=== PATIENT | female | born 1950 | race Caucasian/White ===

== ENCOUNTER 2018-02-08 10:01 | Emergency (ER) | payer MEDICARE, OTHER ==
[2018-02-08] MEDS ORDERED: DIAZEPAM INJ 10 MG/2 ML DISP.SYRIN IV ONE (10:31)
--- NOTE | 2018-02-08 10:31 | ER Document Report ---
ED General - General Chief Complaint: Back Pain Stated Complaint: LEFT SIDE PAIN Time Seen by Provider: 02/08/18 10:12 Mode of Arrival: Wheelchair Information source: Patient, Relative Notes: 68-year-old female history of brain surgery aneurysm, seizures with chronic tremors left-sided weakness presents with complaints of left-sided pain that worsened since a bus trip on Friday. Patient denies a history of DVTs or PEs, denies any calf pain, admits to back pain chest pain headache worsening shaking face spasms. TRAVEL OUTSIDE OF THE [place] IN LAST 30 DAYS: No - HPI Onset: Yesterday Onset/Duration: Persistent Quality of pain: Cramping Severity: Mild Pain Level: 1 Associated symptoms: Body/muscle aches, Chest pain, Headache Exacerbated by: Movement Relieved by: Denies Similar symptoms previously: Yes Recently seen / treated by doctor: Yes - Related Data Allergies/Adverse Reactions: iodine [Iodine] Allergy (Severe, Verified 04/28/14 21:13) Anaphylaxis naproxen [Naproxen] Allergy (Verified 04/28/14 21:13) phenytoin sodium [From Dilantin] Allergy (Verified 04/28/14 21:13) phenytoin sodium extended [From Dilantin] Allergy (Verified 04/28/14 21:13) shrimp Allergy (Uncoded 04/28/14 21:13) Past Medical History - Social History Smoking Status: Never Smoker Cigarette use (# per day): No Chew tobacco use (# tins/day): No Smoking Education Provided: No Frequency of alcohol use: None Drug Abuse: None Family History: Reviewed & Not Pertinent Patient has suicidal ideation: No Patient has homicidal ideation: No - Past Medical History Cardiac Medical History: Denies: Hx Heart Attack, Hx Hypertension Pulmonary Medical History: Reports: Hx Asthma - childhood Denies: Hx Bronchitis, Hx COPD, Hx Pneumonia, Hx Tuberculosis Neurological Medical History: Reports: Hx Cerebrovascular Accident - DURING BRAIN SURGERY, Hx Seizures Renal/ Medical History: Denies: Hx Peritoneal Dialysis GI Medical History: Reports: Hx Gastroesophageal Reflux Disease, Hx Irritable Bowel Musculoskeltal Medical History: Denies Hx Arthritis Psychiatric Medical History: Reports: Hx Dementia, Hx Depression - Anxiety Past Surgical History: Reports: Hx Abdominal Surgery - gastric bypass, Hx Gastric Bypass Surgery, Hx Neurologic Surgery - brain aneurysm 2000, Hx Tonsillectomy, Hx Tubal Ligation. Denies: Hx Hysterectomy, Hx Pacemaker - Immunizations Hx Diphtheria, Pertussis, Tetanus Vaccination: Yes - <5 years Hx Pneumococcal Vaccination: 04/27/14 Review of Systems - Review of Systems Notes: REVIEW OF SYSTEMS: CONSTITUTIONAL : Denies fever, chills, or sweats. Denies recent illness. EENT: Admits to facial spasms CARDIOVASCULAR: Admits to chest pain RESPIRATORY: Denies cough, cold, or chest congestion. Denies shortness of breath, difficulty breathing, or wheezing. GASTROINTESTINAL: Denies abdominal pain or distention. Denies nausea, vomiting , or diarrhea. Denies blood in vomitus, stools, or per rectum. Denies black, tarry stools. Denies constipation. GENITOURINARY: Denies difficulty urinating, painful urination, burning, frequency, blood in urine, or discharge. FEMALE GENITOURINARY: Denies vaginal bleeding, heavy or abnormal periods, irregular periods. Denies vaginal discharge or odor. MUSCULOSKELETAL: Admits to back pain SKIN: Denies rash, lesions or sores. HEMATOLOGIC : Denies easy bruising or bleeding. LYMPHATIC: Denies swollen, enlarged glands. NEUROLOGICAL: Admits to tremors and feeling like she is getting C's PSYCHIATRIC: Denies anxiety or stress. Denies depression, suicidal ideation, or homicidal ideation. ALL OTHER SYSTEMS REVIEWED AND NEGATIVE. PHYSICAL EXAMINATION: GENERAL: Well-appearing, well-nourished and in no acute distress. Patient appears extremely anxious HEAD: Atraumatic, normocephalic. EYES: Pupils equal round and reactive to light, extraocular movements intact, conjunctiva are normal. ENT: Nares patent, oropharynx clear without exudates. Moist mucous membranes. NECK: Normal range of motion, supple without lymphadenopathy LUNGS: Breath sounds clear to auscultation bilaterally and equal. No wheezes rales or rhonchi. HEART: Regular rate and rhythm without murmurs ABDOMEN: Soft, nontender, nondistended abdomen. No guarding, no rebound. No masses appreciated. Female : deferred Musculoskeletal: Tremors noted in bilateral upper extremities NEUROLOGICAL: Tremors noted mild weakness left-sided however. Sensation is noted upon pinprick PSYCH: Patient is extremely anxious SKIN: Warm, Dry, normal turgor, no rashes or lesions noted. Dictation was performed using [employer] recognition software Physical Exam - Vital signs Vitals: Temp Pulse Resp BP Pulse Ox 97.9 F 65 16 139/47 H 98 02/08/18 10:10 02/08/18 10:10 02/08/18 10:10 02/08/18 10:10 02/08/18 10:10 Course - Re-evaluation Re-evalutation: 02/08/18 10:40 I have very low suspicion for any life-threatening issues.. The patient is having muscle spasms from his trip, she has no calf pain calf swelling, no concerns for DVT, patient has no cardiac history, nonetheless I will workup for cardiac concerns through CT of her head, I have very low suspicion for an intracranial bleed either, patient appears very anxious yet states her anxiety is under control 02/08/18 11:49 After receiving Valium, patient is calm her agitation is improved she is denying any pain 02/08/18 17:40 Patient feels much better wishes to be discharged home will be discharged with close follow-up both she and are very happy with this plan After performing a Medical Screening Examination, I estimate there is LOW risk for ACUTE GLAUCOMA, TEMPORAL ARTERITIS, MENINGITIS, INCRANIAL HEMORRHAGE, or ISCHEMIC STROKE thus I consider the discharge disposition reasonable. I have reevaluated this patient multiple times and no significant life threatening changes are noted. The patient and I have discussed the diagnosis and risks, and we agree with discharging home with close follow-up with the understanding that symptoms and presentations can change. We also discussed returning to the Emergency Department immediately if new or worsening symptoms occur. We have discussed the symptoms which are most concerning (e.g., changing or worsening symptoms, new numbness or weakness, vomiting, fever) that necessitate immediate return. - Vital Signs Vital signs: Temp Pulse Resp BP Pulse Ox 98.1 F 65 14 104/59 L 98 02/08/18 14:58 02/08/18 10:10 02/08/18 14:58 02/08/18 14:58 02/08/18 14:58 - Laboratory Result Diagrams: 02/08/18 10:55 02/08/18 12:19 Laboratory results interpreted by me: 02/08/18 02/08/18 10:55 12:19 Hgb 11.9 L RDW 14.3 H Creatinine 0.49 L Total Protein 6.2 L - Diagnostic Test Radiology reviewed: Image reviewed - No acute abnormality, Reports reviewed Discharge - Discharge Clinical Impression: Muscle spasm, Body aches, Anxiety Condition: Stable Disposition: HOME, SELF-CARE Instructions: Myalagia (Muscle Pain) ([facility]) Prescriptions: Diazepam [Valium 5 mg Tablet] 5 mg PO QIDP PRN #15 tablet PRN Reason: Referrals: NICK ALVARENGA JR, MD [Primary Care Provider] - Follow up as needed
[2018-02-08 11:07] LABS: ABSOLUTE BASOPHILS # (AUTO) 0.1 10^3/uL (0.0-0.2); ABSOLUTE EOSINOPHILS # (AUTO) 0.3 10^3/uL (0.0-0.6); ABSOLUTE LYMPHOCYTES (AUTO) 1.7 10^3/uL (0.5-4.7); ABSOLUTE MONOCYTES (AUTO) 0.5 10^3/uL (0.1-1.4); ABSOLUTE NEUT (AUTO) 3.6 10^3/uL (1.7-8.2); BASOPHILS % (AUTO) 0.8 % (0-2); EOSINOPHILS % (AUTO) 4.1 % (0-6); HEMATOCRIT 36.4 % (36.0-47.0); HEMOGLOBIN 11.9 g/dL (12.0-15.5); LYMPHOCYTES % (AUTO) 28.2 % (13-45); MEAN CORPUSCULAR HEMOGLOBIN 29.8 pg (27.0-33.4); MEAN CORPUSCULAR HGB CONC 32.8 g/dL (32.0-36.0); MEAN CORPUSCULAR VOLUME 91 fl (80-97); MONOCYTES % (AUTO) 8.2 % (3-13); PLATELET COUNT 247 10^3/uL (150-450); RED BLOOD COUNT 4.01 10^6/uL (3.72-5.28); RED CELL DISTRIBUTION WIDTH 14.3 % (11.5-14.0); SEGMENTED NEUTROPHILS % (AUTO) 58.7 % (42-78); TOTAL CELLS COUNTED % (AUTO) 100 %; WHITE BLOOD COUNT 6.1 10^3/uL (4.0-10.5)
--- NOTE | 2018-02-08 12:00 | RADIOLOGY REPORT (SQ) ---
EXAM DESCRIPTION: CT HEAD WITHOUT COMPLETED DATE/TIME: 02/08/2018 11:39 am REASON FOR STUDY: headache, hx aneurysm COMPARISON: 2012 TECHNIQUE: Axial images acquired through the brain without intravenous contrast. Images reviewed wi th bone, brain and subdural windows. Additional sagittal and coronal reconstructions were generated. Images stored on PACS. All CT scanners at this facility use dose modulation, iterative reconstruction, and/or weight based d osing when appropriate to reduce radiation dose to as low as reasonably achievable (ALARA). [facility]: Dose Right [facility]: CareDose [facility]: Dose Right [facility]: Teradose 4D [facility]: Smart [employer] RADIATION DOSE: CT Rad equipment meets quality standard of care and radiation dose reduction techniq ues were employed. CTDIvol: 53.2 mGy. DLP: 1017 mGy-cm. mGy. LIMITATIONS: None. FINDINGS: VENTRICLES: Normal size and contour. CEREBRUM: No masses. No hemorrhage. No midline shift. No evidence for acute infarction. Normal gra y/white matter differentiation. Encephalomalacia on the right with previous craniotomy. Dilatation ipsilateral ventricle. . CEREBELLUM: No masses. No hemorrhage. No alteration of density. No evidence for acute infarction. EXTRAAXIAL SPACES: No fluid collections. No masses. ORBITS AND GLOBE: No intra- or extraconal masses. Normal contour of globe without masses. CALVARIUM: Prior right craniotomy. PARANASAL SINUSES: No fluid or mucosal thickening. SOFT TISSUES: No mass or hematoma. OTHER: No other significant finding. IMPRESSION: Prior right craniotomy with right encephalomalacia and dilatation right lateral ventricl e, chronic. No acute process. In EVIDENCE OF ACUTE STROKE: NO. COMMENT: Quality ID # [id number]: Final reports with documentation of one or more dose reduction techniques (e.g., Automated exposure control, adjustment of the mA and/or kV according to patient size, use of iterative reconstruction technique) TECHNICAL DOCUMENTATION: JOB ID: [id number] [employer]- All Rights Reserved Reading location - IP/workstation name: [email or web address]
[2018-02-08 13:14] LABS: ALANINE AMINOTRANSFERASE 37 U/L (9-52); ALBUMIN 4.1 g/dL (3.5-5.0); ALKALINE PHOSPHATASE 95 U/L (38-126); ANION GAP 8 (5-19); ASPARTATE AMINO TRANSFERASE 27 U/L (14-36); BILIRUBIN,DIRECT 0.1 mg/dL (0.0-0.4); BILIRUBIN,TOTAL 0.4 mg/dL (0.2-1.3); BLOOD UREA NITROGEN 8 mg/dL (7-20); CALCIUM 9.2 mg/dL (8.4-10.2); CARBON DIOXIDE 27 mmol/L (22-30); CHLORIDE 105 mmol/L (98-107); CREATINE KINASE 91 U/L (30-135); GLUCOSE 86 mg/dL (75-110); POTASSIUM 4.4 mmol/L (3.6-5.0); SODIUM 140.1 mmol/L (137-145); TOTAL PROTEIN 6.2 g/dL (6.3-8.2)
[2018-02-08 13:23] LABS: CREATINE KINASE MB 1.75 ng/mL (<4.55)
[2018-02-08 13:28] LABS: TROPONIN I < 0.012 ng/mL
--- NOTE | 2018-02-08 13:33 | EKG REPORT ---
SEVERITY:- OTHERWISE NORMAL ECG - SINUS RHYTHM BORDERLINE LEFT AXIS DEVIATION : Confirmed by: Kiko Shabazz MD 08-Feb-2018 13:32:27
[2018-02-08 15:04] VITALS: BP 104/59
== END 2018-02-08 15:03 | disposition home or self-care (01) ==
LOC: ER 10:01
DX: R25.2 Cramp and spasm (principal); M54.9 Dorsalgia, unspecified; M79.1 Myalgia; F41.9 Anxiety disorder, unspecified; Z91.013 Allergy to seafood
CPT/HCPCS: 93005; 99284; 96374; 36415; 82553; 82550; 85025; 80053; 84484; 70450; 93010; J3360